=== PATIENT | female | born 1995 | race American Indian/Alaskan Native ===

== ENCOUNTER 2016-09-01 05:13 | Inpatient (IN) | payer MEDICAID ==
[2016-09-01] MEDS ORDERED: LACTATED RINGERS 1,000 ML ONE ×2 (06:03→06:08)
--- NOTE | 2016-09-01 06:13 | History and Physical Report ---
History of Present Illness Date of examination: 09/01/16 Chief complaint: Painful contractions History of present illness: 21-year-old at 40 weeks presents with above complaints and issues; her DIRECTOR CARDIOVASCULAR is Dr. Liang Rosado at [facility] she is a drop-in. In triage, her cervix was 4-5 cm. care has been unremarkable per patient. Her GBS status is negative per pt, no records at this time patient claims family members bring it in. 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 denies: smoking, alcohol abuse, prescription drug abuse, IV drug use - Obstetrical History Expected Date of Delivery: 09/01/16 Actual Gestation: 40 Week(s) 0 Day(s) : 2 Para: 1 Medications and Allergies Allergies Allergy/AdvReac Type Severity Reaction Status Date / Time No Known Allergies Allergy Verified 03/10/15 20:39 Home Medications Medication Instructions Recorded Confirmed Last Taken Type ALBUTEROL Inhaler [ProAir HFA 2 puff IH QID PRN #1 inhalation 03/14/16 Unknown Rx Inhaler] Review of Systems Constitutional: no fever, no chills, no sweats Cardiovascular: no chest pain, no orthopnea, no palpitations, no syncope, no lightheadedness, no shortness of breath, no dyspnea on exertion, no high blood pressure Respiratory: no cough, no cough with sputum, no hemoptysis, no shortness of breath, no dyspnea on exertion Gastrointestinal: abdominal pain (Painful contractions), no nausea, no vomiting , no diarrhea Genitourinary: no vaginal bleeding, no vaginal discharge, no leakage of fluid - Vital Signs Vital signs: Vital Signs Pulse BP 90 127/80 09/01/16 05:23 09/01/16 05:23 Temp Pulse Resp BP Pulse Ox 98.1 F 83 18 127/80 100 09/01/16 05:30 09/01/16 05:35 09/01/16 05:30 09/01/16 05:30 09/01/16 05:35 - Physical Exam Cardiovascular: Regular rate, Normal S1, Normal S2 Lungs: Positive: Clear to auscultation, Normal air movement Abdomen: Positive: normal appearance, soft. Negative: distention, tenderness, guarding, rigidity Genitourinary (Female): Positive: normal external genitalia Uterus: Positive: enlarged (EFW ~ 3700) Extremities: Positive: normal - Obstetrical FHR: category 1 Cervical Dilatation: 4.5 (Per RN exam) Results All other labs normal. Assessment and Plan A: IUP at 40 wks in active labor -Cat 1 tracing P: -Admit -IV fluid bolus now -Epidural PRN -Routine labs -Expectant mgt -Anticipate - Patient Problems (1) 40 weeks gestation of Current Visit: Yes Status: Acute (2) Active labor at term Current Visit: Yes Status: Acute
[2016-09-01] MEDS ORDERED: MINERAL OIL PO PRN (06:14)
[2016-09-01] MEDS ORDERED: BRETHINE IVP PRN (06:14)
[2016-09-01] MEDS ORDERED: PHENERGAN PO PRN ×2 (06:14→10:00)
[2016-09-01] MEDS ORDERED: SUBLIMAZE IV PRN (06:14)
[2016-09-01] MEDS ORDERED: ZOFRAN IV PRN ×2 (06:14→10:00)
[2016-09-01] MEDS ORDERED: XYLOCAINE 2% INFILTRATI ONE (06:14)
[2016-09-01] MEDS ORDERED: ePHEDrine SULFATE IV PRN ×2 (06:14→08:00)
[2016-09-01] MEDS ORDERED: BRETHINE SUB-Q PRN (06:14)
[2016-09-01 06:31] LABS: Urine Drugs of Abuse Note Disclamer
[2016-09-01 06:46] LABS: Bilirubin,Urine NEG (Negative); Blood,Urine SM (Negative); Ketones,Urine NEG (Negative); Leukocyte Esterase,Urine SM (Negative); Mucus,Urine FEW /HPF; Nitrite,Urine NEG (Negative); Protein,Urine <15 mg/dL mg/dL (Negative)
[2016-09-01 06:54] LABS: Hematocrit 34.4 % (30.3-42.9); Mean Corpuscular HGB Conc 32 % (30-34); Mean Corpuscular Hemoglobin 27 pg (28-32); Mean Corpuscular Volume 86 fl (79-97); Platelet Count 125 K/mm3 (140-440); Red Cell Distribution Width 14.7 % (13.2-15.2); White Blood Count 5.7 K/mm3 (4.5-11.0)
[2016-09-01] MEDS ORDERED: LACTATED RINGERS 1,000 ML IV SCH (07:00)
[2016-09-01] MEDS ORDERED: PITOCin/NS 20 UNIT/1000ML DRIP 20 UNITS/1,000 ML BAG IV SCH ×2 (07:00→10:00)
[2016-09-01] MEDS ORDERED: PITOCin/NS 30 UNIT/500ML 30 UNITS/500 ML BAG IV SCH (07:00)
[2016-09-01] MEDS ORDERED: ePHEDrine SULFATE ONE (07:08)
[2016-09-01 07:13] LABS: HIV-1 Antigen p24 Non React (Non React); HIVR-1/2 Ab Non React (Non React)
[2016-09-01] MEDS ORDERED: NARCAN 2 MG/2 ML IV PRN (08:00)
[2016-09-01] MEDS ORDERED: fentaNYL-BUPIV 2 MCG/ML-0.125% 200 MCG/100 ML BAG EPIDURAL SCH (08:00)
--- NOTE | 2016-09-01 09:22 | Anesthesia Consultation ---
Anesthesia Consult and Med Hx Date of service: 09/01/16 - Airway Anesthetic Teeth Evaluation: Good ROM Head & Neck: Adequate Mental/Hyoid Distance: Adequate Mallampati Class: Class II Intubation Access Assessment: Probably Good - Pulmonary Exam CTA: Yes - Cardiac Exam Cardiac Exam: RRR - Pre-Operative Health Status ASA Pre-Surgery Classification: ASA2 Proposed Anesthetic Plan: Epidural - Pulmonary Hx Asthma: Yes (albuterol inhaler-last asthmatic 02/2016) COPD: No Hx Pneumonia: No - Cardiovascular System Hx Hypertension: No - Central Nervous System Hx Seizures: No Hx Psychiatric Problems: No - Endocrine Hx Renal Disease: No Hx End Stage Renal Disease: No Hx Hypothyroidism: No Hx Hyperthyroidism: No - Hematic Hx Anemia: Yes Hx Sickle Cell Disease: No - Other Systems Hx Alcohol Use: No
--- NOTE | 2016-09-01 09:36 | Procedure Note ---
OB Delivery Note - Delivery Date of Delivery: 09/01/16 Surgeon: FERMÍN BOWERS Estimated blood loss: 300cc - Vaginal Delivery presentation: vertex Delivery position: OP Delivery induction: none Delivery augmentation: rupture of membranes Delivery monitor: external FHT, external uterine Route of delivery: Delivery placenta: spontaneous Delivery cord: 3 umbilical vessels Episiotomy: none Delivery laceration: 2nd degree Delivery repair: vicryl Anesthesia: epidural Delivery comments: Infant delivered OP and placed on mom's chest for [id number] bonding and delayed cord clamping. - Infant A at 1 minute: 8 at 5 minutes: 9 Infant Gender: Male (3944gms)
[2016-09-01] MEDS ORDERED: BENADRYL PO PRN (10:00)
[2016-09-01] MEDS ORDERED: PHENERGAN PR PRN (10:00)
[2016-09-01] MEDS ORDERED: LANSINOH TP PRN (10:00)
[2016-09-01] MEDS ORDERED: TUCKS PAD TP PRN (10:00)
[2016-09-01] MEDS ORDERED: SODIUM CHLORIDE FLUSH SYRINGE 10 ML IV PRN (10:00)
[2016-09-01] MEDS ORDERED: TYLENOL PO PRN (10:00)
[2016-09-01] MEDS ORDERED: DULCOLAX PR PRN (10:00)
[2016-09-01] MEDS ORDERED: DERMOPLAST TP PRN (10:00)
[2016-09-01] MEDS: SENOKOT S PO SCH ×2 (12:51→22:09)
[2016-09-01] MEDS: PRENATAL VITAMIN PO SCH (12:52)
[2016-09-01] MEDS: NORCO 5/325 PO PRN ×2 (12:52→22:09)
[2016-09-01] MEDS: MOTRIN PO SCH (12:52)
[2016-09-01 21:49] LABS: Hematocrit 34.5 % (30.3-42.9); Hemoglobin 11.2 gm/dl (10.1-14.3)
[2016-09-01] MEDS ORDERED: MILK OF MAGNESIA PO PRN (22:00)
[2016-09-01] MEDS: COLACE PO SCH (22:08)
[2016-09-01] MEDS: FEOSOL PO SCH (22:13)
[2016-09-02] MEDS ORDERED: BOOSTRIX IM ONE (06:00)
[2016-09-02] MEDS: MOTRIN PO SCH ×4 (06:30→17:37)
[2016-09-02] MEDS: PRENATAL VITAMIN PO SCH (08:37)
[2016-09-02] MEDS: FEOSOL PO SCH ×2 (08:37→21:51)
[2016-09-02] MEDS: SENOKOT S PO SCH ×2 (08:37→21:51)
[2016-09-02] MEDS: COLACE PO SCH ×2 (08:37→21:50)
--- NOTE | 2016-09-02 10:02 | Progress Note ---
Assessment and Plan - Patient Problems (1) (normal spontaneous vaginal delivery) Onset Date: 09/02/16 Current Visit: Yes Status: Resolved Plan to address problem: A: S/P - PPD #1 Doing well P: May go home today. Subjective - Subjective Date of service: 09/02/16 Principal diagnosis: s/p - PPD #1 Interval history: Pt is feeling well without complaints. Bleeding improved. Wants to go home today. Patient reports: appetite normal, voiding normally, pain well controlled, flatus , ambulating normally [place]: doing well, nursing well, bottle feeding Objective - Vital Signs Latest vital signs: Vital Signs Temp Pulse Pulse Resp BP BP Pulse Ox 09/02/16 00:00 98.2 F 82 20 132/67 09/01/16 22:09 18 09/01/16 16:25 97.7 F 77 18 123/63 09/01/16 11:30 98.7 F 80 18 159/89 09/01/16 10:40 97.5 F L 16 09/01/16 10:38 80 137/77 09/01/16 10:36 89 100 09/01/16 10:31 90 100 09/01/16 10:26 92 H 100 09/01/16 10:24 86 130/75 09/01/16 10:21 91 H 100 09/01/16 10:12 86 100 09/01/16 10:08 86 131/77 09/01/16 10:07 91 H 100 09/01/16 10:02 90 100 Intake and Output 09/01/16 09/02/16 09/02/16 22:59 06:59 14:59 Intake Total 720 Output Total 2100 Balance -1380 Intake: Oral 720 Output: Urine 2100 Void 2100 Other: Total, Intake Amount 240 Total, Output Amount 600 # Voids Void 1 - Exam Breasts: Present: normal, axillary nodes (normal) Cardiovascular: Present: Regular rate Lungs: Present: Clear to auscultation Abdomen: Present: normal appearance, soft Uterus: Present: normal, firm, fundal height below umbilicus Extremities: Present: normal - Labs Labs: Laboratory Tests 09/01/16 09/01/16 09/01/16 06:00 06:00 06:00 WBC RBC Hgb Hct MCV MCH MCHC RDW Plt Count Urine Color Yellow Urine Turbidity Clear Urine pH 6.0 Ur Specific [place] 1.023 Urine Protein <15 mg/dl Urine Glucose (UA) Neg Urine Ketones Neg Urine Blood Sm Urine Nitrite Neg Urine Bilirubin Neg Urine Urobilinogen 2.0 Ur Leukocyte Esterase Sm Urine WBC (Auto) 11.0 H Urine RBC (Auto) 5.0 U Epithel Cells (Auto) 8.0 Urine Mucus Few Urine Opiates Screen Urine Methadone Screen Ur Barbiturates Screen Ur Phencyclidine Scrn Ur Amphetamines Screen U Benzodiazepines Scrn Urine Cocaine Screen U Marijuana (THC) Screen Drugs of Abuse Note RPR Nonreactive Hepatitis C Antibody Non-reactive HIV 1&2 Antibody Rapid HIV P24 Antigen Rubella IgG Antibody Immune Blood Type ASH Antibody Screen 09/01/16 09/01/16 09/01/16 06:00 06:00 06:00 WBC 5.7 RBC 4.00 Hgb 11.0 Hct 34.4 MCV 86 MCH 27 L MCHC 32 RDW 14.7 Plt Count 125 L Urine Color Urine Turbidity Urine pH Ur Specific [place] Urine Protein Urine Glucose (UA) Urine Ketones Urine Blood Urine Nitrite Urine Bilirubin Urine Urobilinogen Ur Leukocyte Esterase Urine WBC (Auto) Urine RBC (Auto) U Epithel Cells (Auto) Urine Mucus Urine Opiates Screen Presumptive negative Urine Methadone Screen Presumptive negative Ur Barbiturates Screen Presumptive negative Ur Phencyclidine Scrn Presumptive negative Ur Amphetamines Screen Presumptive negative U Benzodiazepines Scrn Presumptive negative Urine Cocaine Screen Presumptive negative U Marijuana (THC) Screen Presumptive negative Drugs of Abuse Note Disclamer RPR Hepatitis C Antibody HIV 1&2 Antibody Rapid Non react HIV P24 Antigen Non react Rubella IgG Antibody Blood Type O POSITIVE ASH Antibody Screen Negative 09/01/16 21:22 WBC RBC Hgb 11.2 Hct 34.5 MCV MCH MCHC RDW Plt Count Urine Color Urine Turbidity Urine pH Ur Specific [place] Urine Protein Urine Glucose (UA) Urine Ketones Urine Blood Urine Nitrite Urine Bilirubin Urine Urobilinogen Ur Leukocyte Esterase Urine WBC (Auto) Urine RBC (Auto) U Epithel Cells (Auto) Urine Mucus Urine Opiates Screen Urine Methadone Screen Ur Barbiturates Screen Ur Phencyclidine Scrn Ur Amphetamines Screen U Benzodiazepines Scrn Urine Cocaine Screen U Marijuana (THC) Screen Drugs of Abuse Note RPR Hepatitis C Antibody HIV 1&2 Antibody Rapid HIV P24 Antigen Rubella IgG Antibody Blood Type ASH Antibody Screen
--- NOTE | 2016-09-02 10:57 | Discharge Summary ---
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 Condition at discharge: Good Disposition: DISCHARGED TO HOME OR SELFCARE - Discharge Diagnoses (1) (normal spontaneous vaginal delivery) Status: Resolved Plan - Discharge Medications Prescriptions: Ferrous Sulfate [Feosol 325 MG tab] 325 mg PO BID #60 tablet Ibuprofen [Motrin 600 MG tab] 600 mg PO Q6H #30 tablet Vit-Fe Fumar-FA [ Vitamin] 1 each PO QDAY #30 tablet - Provider Discharge Summary Activity: routine, no sex for 6 weeks, no heavy lifting 4 weeks, no strenuous exercise Diet: routine Instructions: routine Additional instructions: [] Smoking cessation referral if applicable(refer to patient education folder for contact #) [] Refer to [facility]'s [facility] Booklet Call your doctor immediately for: * Fever > 100.5 * Heavy vaginal bleeding ( >1 pad per hour) * Severe persistent headache * Shortness of breath * Reddened, hot, painful area to leg or breast * Drainage or odor from incision. * Keep incision clean and dry at all times and follow doctor's instructions regarding bathing/showering - Follow up plan Follow up: NERY RHODES MD [Primary Care Provider] - 7 Days FERMÍN BOWERS MD [Staff Physician] - 6 Weeks
[2016-09-02] MEDS ORDERED: M-M-R II VACCINE SUB-Q ONE (11:00)
--- NOTE | 2016-09-02 11:04 | Progress Note ---
Subjective Date of service: 09/02/16 Principal diagnosis: s/p - PPD #1 Interval history: 1st day after normal vaginal delivery Patient is in the bed, comfortable. Pain is well controlled with pain meds. Ambulated. No residual neurological deficit. No anesthesia complications Objective - Constitutional Vitals: Vital Signs - 12hr 09/02/16 00:00 Temperature 98.2 F Pulse Rate [ 82 Right] Respiratory 20 Rate Blood Pressure 132/67 [Right Arm] - Labs CBC & Chem 7: 09/01/16 21:22
[2016-09-02] MEDS: NORCO 5/325 PO PRN (20:19)
[2016-09-03] MEDS: NORCO 5/325 PO PRN ×2 (05:09→12:28)
[2016-09-03] MEDS: MOTRIN PO SCH ×3 (06:00→12:29)
[2016-09-03] MEDS: COLACE PO SCH (09:29)
[2016-09-03] MEDS: PRENATAL VITAMIN PO SCH (09:29)
[2016-09-03] MEDS: FEOSOL PO SCH (09:29)
[2016-09-03 16:53] VITALS: BP 120/70
== END 2016-09-03 15:30 | disposition home or self-care (01) | DRG 775 ==
LOC: TRG 05:13 → LD 06:12 → OB 11:29
PROVIDERS: ADMIT Obstetrics & Gynecology Gynecology; ATTEND Obstetrics & Gynecology Gynecology
PROC: 10E0XZZ Delivery of Products of Conception, External Approach (ICD-10-PCS; principal; 2016-09-01)
PROC: 0KQM0ZZ Repair Perineum Muscle, Open Approach (ICD-10-PCS; 2016-09-01)
PROC: 00HU33Z Insertion of Infusion Device into Spinal Canal, Percutaneous Approach (ICD-10-PCS; 2016-09-01)
PROC: 3E0R3CZ (ICD-10-PCS; 2016-09-01)
DX: O99.52 Diseases of the respiratory system complicating childbirth (principal); J45.909 Unspecified asthma, uncomplicated; O70.1 Second degree perineal laceration during delivery; Z37.0 Single live birth; Z3A.40 40 weeks gestation of pregnancy
CPT/HCPCS: 36415; 80307; 81001; 85014; 85018; 85027; 86592; 86706; 86762; 86803; 86850; 86900; 86901; 87806; 90471; 90715; 99211; A6250; G0463; J2590; J3010; J7120

== ENCOUNTER 2017-06-20 16:29 | Emergency (ER) | payer MEDICAID ==
--- NOTE | 2017-06-20 19:54 | Emergency Department Report ---
HPI - General Chief Complaint: Upper Respiratory Infection Time Seen by Provider: 06/20/17 19:48 - HPI HPI: 22-year-old female that comes in with past medical history of asthma comes in with complaint of shortness of breath cough wheezing. She denies any fever or chills. She has no past medical history except asthma she currently takes no medications no known drug allergies and no primary care provider. ED Past Medical Hx - Past Medical History Hx Hypertension: No Hx Congestive Heart Failure: No Hx Diabetes: No Hx Deep Vein Thrombosis: No Hx Renal Disease: No Hx Sickle Cell Disease: No Hx Seizures: No Hx Asthma: Yes (albuterol inhaler-last asthmatic 02/2016) Hx COPD: No Hx HIV: No - Surgical History Past Surgical History?: No - Social History Smoking Status: Never Smoker Substance Use Type: None - Medications Home Medications: Home Medications Medication Instructions Recorded Confirmed Last Taken Type ALBUTEROL Inhaler [ProAir HFA 2 puff IH QID PRN #1 inhalation 03/14/16 09/01/16 Unknown Rx Inhaler] Ferrous Sulfate [Feosol 325 MG tab] 325 mg PO BID #60 tablet 09/02/16 Unknown Rx Ibuprofen [Motrin 600 MG tab] 600 mg PO Q6H #30 tablet 09/02/16 Unknown Rx Vit-Fe Fumar-FA [ 1 each PO QDAY #30 tablet 09/02/16 Unknown Rx Vitamin] ALBUTEROL Inhaler [ProAir HFA 2 puff IH QID PRN #1 inhalation 06/20/17 Unknown Rx Inhaler] predniSONE [Deltasone] 20 mg PO QDAY #3 tab 06/20/17 Unknown Rx ED Review of Systems ROS: Stated complaint: NORA/ASTHMA Other details as noted in HPI Constitutional: denies: chills, fever Eyes: denies: eye pain, eye discharge, vision change ENT: denies: ear pain, throat pain Respiratory: cough, shortness of breath, wheezing Cardiovascular: denies: chest pain, palpitations Endocrine: no symptoms reported Gastrointestinal: denies: abdominal pain, nausea, diarrhea Genitourinary: denies: urgency, dysuria, discharge Musculoskeletal: denies: back pain, joint swelling, arthralgia Skin: denies: rash, lesions Neurological: denies: headache, weakness, paresthesias Psychiatric: denies: anxiety, depression Hematological/Lymphatic: denies: easy bleeding, easy bruising Physical Exam - Physical Exam Vital Signs: Vital Signs 06/20/17 16:44 Temperature 98.9 F Pulse Rate 94 H Respiratory 16 Rate Blood Pressure 122/77 O2 Sat by Pulse 97 Oximetry Physical Exam: GENERAL: Alert and oriented x3, no apparent distress, Normal Gait, atraumatic. HEAD: Head is normocephalic and a-traumatic. EYES: Extra ocular muscles are intact. Pupils are equal, round, and reactive to light and accommodation. EARS: symetrical, atraumatic, non tender, ear canal clear and moderate cerumen, tympanic membrance non inflamed. gross auditory nml bilaterally. NOSE: Nose symetrical, Nontender,Nares appeared normal. MOUTH:Mouth is well hydrated and without lesions. Tonsils nonerythematous or swollen, Uvula midline, Tongue not elevated. Mucous membranes are moist. Posterior pharynx clear, no exudate or lesions. Patent airways. NECK: Supple. Non edematous, No carotid bruits. No lymphadenopathy or thyromegaly. LUNGS: Symetrical with respiration, inspiratory and expiratory wheezing bilateral HEART: S1, S2 present, regular rate and rhythm without murmur, no rubs, no gallops. ABDOMEN: No organomegaly was noted,Positive bowel sounds, soft, and non- distended. . Nontender to palpation on all Quadrants, NO CVA tenderness. EXTREMITIES/MUSCULOSKELETAL: No cyanosis, clubbing, rash, lesions or edema. Full ROM bilaterally. UE/LE Pulses 2+ bilaterally. LE and UE 5+ strength bilaterally NEUROLOGIC: No focal Deficit, Cranial nerves II through XII are grossly intact. No loss of sensation, No facial droop, PSYCHIATRIC: Mood is congruent with affect, denies suicidal or homicidal ideations. SKIN: Warm and dry, No lesions, No ulceration or induration present ED Course Vital Signs 06/20/17 16:44 Temperature 98.9 F Pulse Rate 94 H Respiratory 16 Rate Blood Pressure 122/77 O2 Sat by Pulse 97 Oximetry ED Medical Decision Making - Radiology Data Radiology results: report reviewed, image reviewed - Medical Decision Making Patient has been evaluated by this provider fast track. I discussed the patient we'll do a chest x-ray dual neb and prednisone. Patient reevaluated by this provider. Patient is no longer wheezing this no longer shortness of breath patient appears to be comfortable. Discussed the patient and she is stable enough to go home patient reports that she feels much better we'll prepare patient's paperwork for discharge discussed the patient I will discharge her home in a few days of prednisone as well as an albuterol patient verbalizes understanding Critical care attestation.: If time is entered above; I have spent that time in minutes in the direct care of this critically ill patient, excluding procedure time. ED Disposition Clinical Impression: Asthma attack Qualifiers: Asthma severity: mild Asthma persistence: unspecified Qualified Code(s): J45.901 - Unspecified asthma with (acute) exacerbation Disposition: TO HOME OR SELFCARE Is pt being admited?: No Does the pt Need Aspirin: No Condition: Stable Additional Instructions: Please take prednisone as prescribed use inhaler as prescribed follow up with a primary care provider if symptoms persist or gets worse. Prescriptions: ALBUTEROL Inhaler [ProAir HFA Inhaler] 2 puff IH QID PRN #1 inhalation PRN Reason: Shortness Of Breath predniSONE [Deltasone] 20 mg PO QDAY #3 tab Referrals: ABIGAIL CARTER MD [Primary Care Provider] - 3-5 Days [facility] [Provider Group] - 3-5 Days Forms: Work/School Release Form(ED)
[2017-06-20] MEDS ORDERED: DUONEB *Not for PRN Use IH ONE (19:55)
[2017-06-20] MEDS ORDERED: DECADRON IV ONE (19:55)
--- NOTE | 2017-06-20 20:52 | XRay Report ---
FINAL REPORT EXAM: XR CHEST ROUTINE 2V HISTORY: NORA TECHNIQUE: Two view chest PA and lateral PRIORS: None. FINDINGS: Cardiac and mediastinal contours are unremarkable. No focal pulmonary infiltrate is identified. No pleural fluid collection seen. Pulmonary vasculature is unremarkable. IMPRESSION: Negative two-view chest
[2017-06-20 21:40] VITALS: BP 120/87
== END 2017-06-20 21:42 | disposition home or self-care (01) ==
LOC: ED 16:29
DX: J45.901 Unspecified asthma with (acute) exacerbation (principal)
CPT/HCPCS: 71046; 94640; 96374; 99283; J1100